=== PATIENT | female | born 1985 | race Two or more races ===

== ENCOUNTER 2016-07-30 01:49 | Emergency (ER) | payer OTHER ==
[2016-07-30 02:06] VITALS: BP 122/74; PULSE 77; TEMP 98.5; BMI 24.7
[2016-07-30] MEDS ORDERED: METOCLOPRAMIDE HCL INJECTION 10 MG/2 ML VIAL IVPB ONE (02:09)
[2016-07-30] MEDS ORDERED: SODIUM CHLORIDE 1,000 ML IV STA (02:10)
[2016-07-30] MEDS ORDERED: DEXAMETHASONE SOD PHOSPHATE 4 MG/1 ML VIAL IVPUSH ONE (02:10)
--- NOTE | 2016-07-30 02:12 | PDOC ---
History of Present Illness - General History Source: Patient Exam Limitations: No Limitations - History of Present Illness Initial Comments: 07/30/16 02:19 The patient is a 30 year old female (12 wks) with significant past medical history of migraine headaches who presents to the ED with headache that began earlier this afternoon. Patient reports her pain is localized on bilateral temporal regions with associated photophobia and nausea. She denies vomiting. She states her usual headaches occur during her menstrual cycle and is relieved with tylenol. However, since she is , she did not take any medications for her headache. The patient denies fever, chills, cough, SOB, chest pain, and palpitations. The patient denies abdominal pain and diarrhea. Allergies: NKDA Social History: No alcohol, tobacco, or drug use reported. Past Surgical History: None reported PCP: Dr. Chhaya Campos <Yue Garcia - Last Filed: 07/30/16 02:19> <Domenico Shepherd - Last Filed: 07/30/16 03:20> - General Chief Complaint: Migraine Headache Stated Complaint: MIGRAINE, 12 WKS PREG Time Seen by Provider: 07/30/16 02:04 Past History <Yue Garcia - Last Filed: 07/30/16 02:19> - Past Medical History Other medical history: denies - Psycho/Social/Smoking Cessation Hx Suicidal Ideation: No Smoking History: Never smoked <Domenico Shepherd - Last Filed: 07/30/16 03:20> - Past Medical History Allergies/Adverse Reactions: Allergies Allergy/AdvReac Type Severity Reaction Status Date / Time latex Allergy Verified 07/30/16 02:04 Home Medications: Ambulatory Orders NK [No Known Home Medication] 07/30/16 Review of Systems - Review of Systems Able to Perform ROS?: Yes <Yue Garcia - Last Filed: 07/30/16 02:19> - Review of Systems Able to Perform ROS?: Yes Is the patient limited [place] proficient: No Constitutional: No: Symptoms Reported HEENTM: Yes: Symptoms Reported, See HPI, Eye Pain. No: Blurred Vision, Tearing Respiratory: No: Symptoms reported Cardiac (ROS): No: Symptoms Reported ABD/GI: Yes: Symptoms Reported, See HPI, Nausea : No: Symptoms Reported Musculoskeletal: No: Symptoms Reported Integumentary: No: Symptoms Reported Neurological: Yes: Symptoms reported, See HPI, Headache All Other Systems: Reviewed and Negative <Domenico Shepherd - Last Filed: 07/30/16 03:20> *Physical Exam - Vital Signs Last Vital Signs Temp Pulse Resp BP Pulse Ox 98.5 F 77 18 122/74 99 07/30/16 02:04 07/30/16 02:04 07/30/16 02:04 07/30/16 02:04 07/30/16 02:04 <Yue Garcia - Last Filed: 07/30/16 02:19> - Vital Signs Last Vital Signs Temp Pulse Resp BP Pulse Ox 98.5 F 77 18 122/74 99 07/30/16 02:04 07/30/16 02:04 07/30/16 02:04 07/30/16 02:04 07/30/16 02:04 - Physical Exam General Appearance: Yes: Nourished, Appropriately Dressed. No: Apparent Distress HEENT: positive: EOMI, JANELL, Normal ENT Inspection Neck: positive: Supple. negative: Tender, Carotid bruit Respiratory/Chest: positive: Lungs Clear. negative: Respiratory Distress Cardiovascular: positive: Regular Rhythm, Regular Rate Gastrointestinal/Abdominal: positive: Normal Bowel Sounds, Soft. negative: Tender Musculoskeletal: positive: Normal Inspection. negative: CVA Tenderness, Vertebral Tenderness Extremity: positive: Normal Capillary Refill, Normal Inspection, Normal Range of Motion Integumentary: positive: Normal Color Neurologic: positive: manager resort II-XII NML intact, Fully Oriented, Alert, Normal Mood/ Affect, Normal Response, Motor Strength 5/5 <Domenico Shepherd - Last Filed: 07/30/16 03:20> Progress Note - Progress Note Progress Note: BETTER. NO HEAD ACHE NORMAL NEURO EXAM <Domenico Shepherd - Last Filed: 07/30/16 03:20> *DC/Admit/Observation/Transfer - Attestations Scribe Attestion: 07/30/16 02:19 Documentation prepared by Yue Garcia, acting as medical registrar for Domenico Shepehrd MD <Yue Garcia - Last Filed: 07/30/16 02:19> - Discharge Dispostion Admit: No <Domenico Shepherd - Last Filed: 07/30/16 03:20> Diagnosis at time of Disposition: Headache Qualifiers: Headache type: unspecified Headache chronicity pattern: unspecified pattern Intractability: not intractable Qualified Code(s): R51 - Headache - Discharge Dispostion Disposition: HOME Condition at time of disposition: Improved - Referrals Referrals: Chhaya Correa MD [Primary Care Provider] - Call tomorrow - Patient Instructions Additional Instructions: PLENTY OF FLUIDS CALL YOUR DOCTOR IN AM FOR FOLLOW UP TYLENOL AT FIRST SIGN OF HEAD ACHE RETURN IF WORSENING OR NEW SYMPTOMS
[2016-07-30] MEDS ORDERED: DEXAMETHASONE SOD PHOSPHATE 10 MG/1 ML VIAL ONE (02:18)
[2016-07-30] MEDS ORDERED: METOCLOPRAMIDE HCL INJECTION 10 MG/2 ML VIAL ONE ×2 (02:18→02:23)
== END 2016-07-30 03:26 | disposition home or self-care (01) ==
LOC: JER 01:49
DX: O99.89 Other specified diseases and conditions complicating pregnancy, childbirth and the puerperium (principal); R51 Headache; Z3A.12 12 weeks gestation of pregnancy
CPT/HCPCS: 99282-25